=== PATIENT | female | born 1970 | race Caucasian/White ===

== ENCOUNTER 2021-11-19 11:08 | Emergency (ER) | payer BC, OTHER ==
[2021-11-19] MEDS ORDERED: Ondansetron ODT 4 MG TAB ONE (13:38)
== END 2021-11-19 14:16 | disposition home or self-care (01) ==
LOC: CSHERS 11:08
DX: U07.1 COVID-19 (principal)
CPT/HCPCS: 71045; 93005; Q0162

== ENCOUNTER 2022-04-24 11:23 | Outpatient (CLI) | payer BC | END 2022-04-24 11:24 | disposition home or self-care (01) | LOC: CSHMAMMO 11:23 | PROVIDERS: ATTEND Family Medicine | DX: Z12.31 Encounter for screening mammogram for malignant neoplasm of breast (principal) | CPT/HCPCS: 77063; 77067 ==

== ENCOUNTER 2023-07-08 09:40 | Outpatient (CLI) | payer BC | END 2023-07-08 09:41 | disposition home or self-care (01) | LOC: CSHMAMMO 09:40 | PROVIDERS: ATTEND Family Medicine | DX: Z12.31 Encounter for screening mammogram for malignant neoplasm of breast (principal); Z13.820 Encounter for screening for osteoporosis; M85.851 Other specified disorders of bone density and structure, right thigh; N95.1 Menopausal and female climacteric states | CPT/HCPCS: 77063; 77067; 77080 ==